=== PATIENT | male | born 1990 | race Two or more races ===

== ENCOUNTER 2017-02-21 20:12 | Emergency (ER) | payer SELFPAY ==
[~2017-02-21] VITALS: Ht 182.9 cm; Wt 70.8 kg
[2017-02-21] MEDS ORDERED: NAPR500T PO (20:40)
--- NOTE | 2017-02-21 20:40 | PHYS DOC ---
Adult General Chief Complaint Chief Complaint: SHOULDER INJURY HPI HPI Patient is a 26 year old male who presents with complaint of right shoulder injury. Patient states that he feels his right shoulder has dislocated. Patient states that this has happened 5 times prior to today. Patient states that he was throwing a remote control toward furniture when his shoulder felt like it came out of place. Patient is complaining of 10 out of 10 pain at this time. Patient denies loss of feeling in his right hand. Patient states that this took place approximately 1 hour prior to arrival. Patient denies any other injuries. Patient has not taken any medications to help with his symptoms. Review of Systems Review of Systems Constitutional: Denies fever or chills [] Eyes: Denies change in visual acuity, redness, or eye pain [] HENT: Denies nasal congestion or sore throat [] Respiratory: Denies cough or shortness of breath [] Cardiovascular: Denies chest pain or edema [] GI: Denies abdominal pain, nausea, vomiting, bloody stools or diarrhea [] : Denies dysuria or hematuria [] Musculoskeletal: Right shoulder pain [] Integument: Denies rash or skin lesions [] Neurologic: Denies headache, focal weakness or sensory changes [] Allergies Allergies Allergies Coded Allergies Type Severity Reaction Last Updated Verified No Known Drug Allergies 02/21/17 No Physical Exam Physical Exam Constitutional: Alert, afebrile, appears in severe discomfort. [] HENT: Normocephalic, atraumatic, bilateral external ears normal, oropharynx moist, no oral exudates, nose normal. [] Eyes: PERRLA, EOMI, conjunctiva normal, no discharge. [] Neck: Normal range of motion, no tenderness, supple, no stridor. [] Cardiovascular:Heart rate regular rhythm, no murmur [] Lungs & Thorax: Bilateral breath sounds clear to auscultation [] Abdomen: Bowel sounds normal, soft, no tenderness, no masses, no pulsatile masses. [] Skin: Warm, dry, no erythema, no rash. [] Back: No tenderness, no CVA tenderness. [] Extremities: Right anterior shoulder deformity present, range of motion not tested in right upper extremity secondary to pain, neurovascularly intact in right hand. [] Neurologic: Alert and oriented X 3, normal motor function, normal sensory function, no focal deficits noted. [] Current Patient Data Vital Signs Vital Signs Date Time Temp Pulse Resp B/P (MAP) Pulse Ox O2 Delivery O2 Flow Rate FiO2 02/21/17 21:17 76 16 108/56 (73) 99 Room Air 02/21/17 20:15 98.0 98.0 EKG EKG Not performed [] Radiology/Procedures Radiology/Procedures Indication: Joint dislocation Consent: Verbal consent was obtained. Procedure: The pre-reduction exam showed distal perfusion and neurologic function to be normal.. The patient was placed in the appropriate position. Reduction of the right shoulder was performed by traction and direct manipulation of humeral head. Post reduction films were obtained and revealed satisfactory reduction. A post-reduction exam revealed distal perfusion and neurologic function to be normal. The affected area was immobilized with a shoulder immobilizer. The patient tolerated the procedure well. Complications: none.[] Course & Med Decision Making Course & Med Decision Making Pertinent Labs and Imaging studies reviewed. (See chart for details) The patient's right shoulder was reduced as outlined in the procedure note. The patient states on reevaluation that his shoulder feels much better at this time. The patient will be kept in a shoulder immobilizer over the next 24 hours with recommended gentle range of motion shortly after as tolerated. Patient will be referred to Dr. Mcgill as patient has noted that he has had several dislocations of the right shoulder and will need formal evaluation to discuss further treatment options for prevention of further dislocations. Advised return emergency department for any worsening symptoms. Patient voiced understanding and in agreement with treatment plan. Dragon Disclaimer Dragon Disclaimer This electronic medical record was generated, in whole or in part, using a voice recognition dictation system. Departure Departure Impression: Primary Impression: Anterior dislocation of right shoulder Disposition: 01 HOME, SELF-CARE Condition: IMPROVED Referrals: DIAMOND MCGILL MD Patient Instructions: Shoulder Dislocation Additional Instructions: Follow-up in one week with Dr. Mcgill of orthopedic surgery for reevaluation. Return to the emergency department for any worsening symptoms. Scripts Naproxen (NAPROSYN) 500 Mg Tablet 1 TAB PO BID Y for PAIN, #20 TAB 0 Refills Prov: DARRELL KIRBY MD 02/21/17 Problem Qualifiers Primary Impression: Anterior dislocation of right shoulder Encounter type: initial encounter Qualified Codes: S43.014A - Anterior dislocation of right humerus, initial encounter DARRELL KIRBY MD Feb 21, 2017 20:40
[2017-02-21 21:17] VITALS: BP 108/56
--- NOTE | 2017-02-22 07:17 | RAD ---
Indication: Postreduction right shoulder dislocation. Time of exam 2106 hours. 2 views of the right shoulder demonstrate fairly normal glenohumeral alignment. There may be some mild residual anterior subluxation, difficult to determine with the supplied images. No fractures are seen. Acromioclavicular alignment is normal. Impression: No acute bony abnormalities detected. No dislocation is seen. There may be some mild anterior subluxation present. No other abnormalities detected.
== END 2017-02-21 21:17 | disposition home or self-care (01) ==
LOC: ER 20:12
DX: S43.014A Anterior dislocation of right humerus, initial encounter (principal); X50.9XXA Other and unspecified overexertion or strenuous movements or postures, initial encounter; Y93.89 Activity, other specified; Y99.8 Other external cause status; Y92.89 Other specified places as the place of occurrence of the external cause
CPT/HCPCS: 23650; 73030; 99284-25